=== PATIENT | male | born 1955 | race Caucasian/White ===

== ENCOUNTER 2023-06-13 12:46 | Outpatient (CLI) | payer MEDICARE, SELFPAY ==
--- NOTE | ~2023-06-13 | CT_ITS ---
EXAMINATION: CT diagnostic chest wo con DATE: 06/13/2023 13:24 INDICATION: Solitary pulmonary nodule TECHNIQUE: Computed tomography (CT) of the chest was performed without intravenous contrast. The dose -length product (DLP) was 290.18 mGy-cm. Automated exposure control and iterative reconstruction tech nique were employed. COMPARISON: None FINDINGS: There is mild atelectasis. Calcified pulmonary nodules are consistent with old granulomatou s disease. No pleural effusion or pneumothorax. No pathologically enlarged thoracic lymph nodes are i dentified. The heart size is normal. Mild bilateral gynecomastia is noted. There is calcified coronar y artery atherosclerosis. Splenomegaly is noted. IMPRESSION: 1. Calcified pulmonary nodules, consistent with old granulomatous disease. Reviewed, dictated and finalized at location F.
== END 2023-06-13 12:47 | disposition home or self-care (01) ==
LOC: ANHIMG 12:52
PROVIDERS: PCP Physician Assistant Medical; Visit Provider Physician Assistant
DX: R91.1 Solitary pulmonary nodule (principal); R91.8 Other nonspecific abnormal finding of lung field
CPT/HCPCS: 71250

== ENCOUNTER 2023-09-27 08:37 | Outpatient (CLI) | payer MEDICARE, SELFPAY ==
--- NOTE | 2023-09-27 08:50 | ECHO_ITS ---
Patient Info Name: Haroldo Rivera Age: 68 years : 1955 Gender: Male Ht: 71 in Wt: 240 lbs BSA: 2.37 m2 HR: 65 bpm BP: 175 / 105 mmHg Heart Rhythm: Sinus Rhythm Technical Quality: Good Exam Date: 09/27/2023 8:58 AM Exam Location: Echo Lab Patient Status: Outpatient Admit Date: 09/27/2023 Staff Ordering Physician: Shankar Delgado MD Director Digital Sales: Demetris Jameson RDCS Attending Provider: [place], Michael Ibrahim MD Referring Physician: Sandy MOHAMUD; Exam Type: CA echo doppler color flow Study Info Indications - HTN Complete two-dimensional, color flow and Doppler transthoracic echocardiogram is performed. Summary 1. Complete two-dimensional, color flow and Doppler transthoracic echocardiogram is performed. 2. Left ventricular chamber dimension is normal. 3. Left ventricular systolic function is normal, estimated at 60-65%. 4. There is moderate concentric increased left ventricular wall thickness. 5. The left ventricular diastolic function is grade III diastolic dysfunction. 6. E/e' 9 is minimally elevated. 7. Left atrial chamber dimension is mildly enlarged. 8. Right atrial chamber dimension is mildly enlarged. 9. There is trace mitral valve regurgitation. 10. No pulmonary hypertension, estimated pulmonary arterial systolic pressure is 18 mmHg. 11. There is trace pulmonic regurgitation. Left Ventricle E/e' 9 is minimally elevated. Left ventricular chamber dimension is normal. Left ventricular systolic function is normal, estimated at 60-65%. There is moderate concentric increased left ventricular wall thickness. The left ventricular diastolic function is grade III diastolic dysfunction. Right Ventricle Right ventricular systolic function is normal and with normal TAPSE 2.4 m. Right ventricular chamber dimension is normal. Left Atria Left atrial chamber dimension is mildly enlarged. Right Atria Right atrial chamber dimension is mildly enlarged. Aortic Valve The aortic valve is trileaflet. There is no aortic valve stenosis. There is no aortic valve regurgitation. Pulmonic Valve There is trace pulmonic regurgitation. Mitral Valve There is no mitral valve stenosis. There is trace mitral valve regurgitation. Tricuspid Valve There is no tricuspid valve regurgitation. No pulmonary hypertension, estimated pulmonary arterial systolic pressure is 18 mmHg. Pericardium/Pleural There is no pericardial effusion. Inferior Vena Cava Normal inferior vena cava with >50% collapse upon inspiration consistent with normal right atrial pressure, 5 mmHg. Aorta The aortic root size at the sinus of Valsalva is normal. Left Ventricular Outflow Tract Name Value Normal LVOT 2D LVOT Diameter 2.1 cm LVOT Doppler LVOT Peak Gradient 3 mmHg LVOT Mean Gradient 2 mmHg LVOT VTI 18 cm LVOT VTI/AV VTI Ratio 0.7 LVOT Stroke Volume 63 ml LVOT CO 3.2 l/min LVOT CI 1.4 l/min/m2 Pulmonic Valve Name
== END 2023-09-27 08:38 | disposition home or self-care (01) ==
LOC: ANHCARD 08:38
PROVIDERS: PCP Physician Assistant Medical; Visit Provider Internal Medicine
DX: I10 Essential (primary) hypertension (principal)
CPT/HCPCS: 93306

== ENCOUNTER 2024-01-20 09:21 | Outpatient (CLI) | payer MEDICARE, SELFPAY ==
--- NOTE | ~2024-01-20 | CT_ITS ---
EXAMINATION: CT abdomen pelvis w con DATE: 01/20/2024 09:51 INDICATION: Right inguinal hernia TECHNIQUE: Computed tomography (CT) of the abdomen and pelvis was performed with 100 mL Omnipaque-350 intravenous contrast. Automated exposure control and iterative reconstruction technique were employe d. The dose-length product was 1382.54 mGy-cm. COMPARISON: None FINDINGS: Mild bibasilar atelectasis. Heart size is normal. No pericardial or pleural effusion. Small sliding-t ype hiatal hernia. Liver, gallbladder, pancreas, bilateral adrenal glands and kidneys are normal. Non specific splenomegaly with splenic length measuring 16.3 cm in maximal length. There are few scattere d sigmoid diverticula without adjacent inflammatory stranding to suggest diverticulitis. Small bowel and appendix are normal. There are moderate-sized bilateral fat-containing inguinal hernias. There is a trace amount of fluid and some inflammatory stranding of the fat within the right inguinal hernia. Partially decompressed bladder is normal. Prostatomegaly measuring 6.0 x 5.3 cm. No free intraperito zeferino gas or fluid. No pathologically enlarged abdominal or pelvic lymphadenopathy. Moderate thoracic and lumbar spondylosis. IMPRESSION: 1. Moderate-sized bilateral fat-containing inguinal hernias with trace amount of likely reactive flui d and inflammatory fat stranding in the right inguinal hernia. 2. Nonspecific splenomegaly measuring 16.3 cm in maximal length 3. Small sliding-type hiatal hernia. Reviewed, dictated and finalized at location A. IMPRESSION: 1. Moderate-sized bilateral fat-containing inguinal hernias with trace amount o f likely reactive fluid and inflammatory fat stranding in the right inguinal he rnia. 2. Nonspecific splenomegaly measuring 16.3 cm in maximal length 3. Small sliding-type hiatal hernia.
[2024-01-20 09:39] LABS: Estimated Glomerular Filt Rate 60
== END 2024-01-20 09:22 ==
PROVIDERS: PCP Family Medicine; Visit Provider Family Medicine
DX: K40.20 Bilateral inguinal hernia, without obstruction or gangrene, not specified as recurrent (principal); R16.1 Splenomegaly, not elsewhere classified; K44.9 Diaphragmatic hernia without obstruction or gangrene
CPT/HCPCS: 74177; Q9967